=== PATIENT | female | born 1975 | race American Indian/Alaskan Native ===

== ENCOUNTER 2017-04-04 11:08 | Emergency (ER) | payer OTHER ==
--- NOTE | 2017-04-04 11:29 | EDM.PDOC ---
ED HPI GENERAL MEDICAL PROBLEM - General Chief Complaint: ENT Problem Stated Complaint: LOSING VOICE,ABD,HARD TO BREATH [id number] Time Seen by Provider: 04/04/17 11:28 Source of Information: Reports: Patient, Family, Old Records, RN, RN Notes Reviewed History Limitations: Reports: No Limitations - History of Present Illness INITIAL COMMENTS - FREE TEXT/NARRATIVE: Agitated, hyperactive pt with forced speech and behavior consistent with stimulant intoxication presents with request to "find answers" of what has been wrong with her for the past month or two. She has a long list of concerns and would also like to know if she has strep throat. C/O hoarse voice and poor appetite. Onset: Unknown/Unsure (1 or more months) Location: Reports: Generalized Severity: Moderate Improves with: Reports: None Worsens with: Reports: None Associated Symptoms: Reports: No Other Symptoms Throat Pain Score (Numeric/FACES): 9 - Related Data Allergies Allergy/AdvReac Type Severity Reaction Status Date / Time No Known Allergies Allergy Verified 04/04/17 11:16 Home Meds: Home Meds Multivitamin [Multivitamins] 1 each PO DAILY 03/11/16 [History] Amitriptyline HCl 150 mg PO DAILY 04/04/17 [History] FLUoxetine HCl [Fluoxetine HCl] 40 mg PO DAILY 04/04/17 [History] Omeprazole 20 mg PO DAILY 04/04/17 [History] QUEtiapine Fumarate [Quetiapine Fumarate] 50 mg PO BEDTIME 04/04/17 [History] rOPINIRole HCl [Ropinirole HCl] 1.25 mg PO BEDTIME 04/04/17 [History] Past Medical History Gastrointestinal History: Reports: Hepatitis, PUD Genitourinary History: Reports: Other (See Below) Other Genitourinary History: left kidney removed Psychiatric History: Reports: Addiction - Infectious Disease History Infectious Disease History: Reports: Hepatitis C - Past Surgical History Female Surgical History: Reports: Tubal Ligation Social & Family History - Family History Family Medical History: Unobtainable - Tobacco Use Smoking Status *Q: Current Every Day Smoker Years of Tobacco use: 25 Packs/Tins Daily: 0.5 Used Tobacco, but Quit: No Second Hand Smoke Exposure: Yes - Recreational Drug Use Recreational Drug Use: Yes Drug Use in Last 12 Months: Yes Recreational Drug Type: Reports: Marijuana/Hashish Recreational Drug Use Frequency: Daily - Living Situation & Occupation Living situation: Reports: with Family Occupation: Unemployed ED ROS GENERAL - Review of Systems Review Of Systems: ROS reveals no pertinent complaints other than HPI. ED EXAM, GENERAL - Physical Exam Exam: See Below Exam Limited By: No Limitations General Appearance: Alert, Other (hyperactive, anxious, appear to be "tweaking") Ears: Normal External Exam, Normal Canal, Hearing Grossly Normal, Normal TMs Nose: Normal Inspection, Normal Mucosa, No Blood Throat/Mouth: Normal Lips, Normal Oropharynx, No Airway Compromise, Other (raspy , hoarse voice). No: Normal Teeth (dental decay) Head: Atraumatic, Normocephalic, Other (large subacute bruise to Rt face) Respiratory/Chest: No Respiratory Distress, Lungs Clear, Normal Breath Sounds, No Accessory Muscle Use, Chest Non-Tender Cardiovascular: Regular Rate, Rhythm, Tachycardia GI/Abdominal: Normal Bowel Sounds, Soft, Non-Tender, No Distention. No: Guarding, Rigid, Rebound (Female) Exam: Deferred Rectal (Female) Exam: Deferred Back Exam: Normal Inspection Extremities: Normal Inspection Neurological: Alert, Oriented (to person and place), CN II-XII Intact Psychiatric: Anxious, Other (agitated) Skin Exam: Warm, Dry, Intact, Normal Color, No Rash Course - Vital Signs Last Recorded V/S: Last Vital Signs Temp 36.4 C 04/04/17 11:12 Pulse 126 H 04/04/17 11:12 Resp 18 04/04/17 11:12 BP 138/95 H 04/04/17 11:12 Pulse Ox 100 04/04/17 11:12 - Orders/Labs/Meds Orders: Active Orders 24 hr Category Date Time Status Peripheral IV Care [RC] . DIRECTED Care 04/04/17 11:48 Active Chest 2V [CR] Stat Exams 04/04/17 11:45 Taken CHLAMYDIA AND GONORRHEA BY TMA Stat Lab 04/04/17 12:20 Received CULTURE STREP A CONFIRMATION [] Stat Lab 04/04/17 11:25 Results STREP SCRN A RAPID W CULT CONF [] Stat Lab 04/04/17 11:25 Results Sodium Chloride 0.9% [Saline Flush] Med 04/04/17 11:45 Active 10 ml FLUSH ASDIRECTED PRN Peripheral IV Insertion Adult [OM.PC] Stat Oth 04/04/17 11:44 Ordered Medication Orders Sodium Chloride (Saline Flush) 10 ml FLUSH ASDIRECTED PRN PRN Reason: Keep Vein Open Last Admin: 04/04/17 12:21 Dose: 10 ml Labs: Laboratory Tests 04/04/17 04/04/17 04/04/17 Range/Units 12:05 12:05 12:10 WBC 8.6 (5.0-10.0) 10^3/uL RBC 4.10 L (4.2-5.4) 10^6/uL Hgb 13.2 D (12.0-16.0) g/dL Hct 38.9 (37.0-47.0) % MCV 94.9 (80-100) fL MCH 32.2 (27.0-34.0) pg MCHC 33.9 (33.0-35.0) g/dL Plt Count 231 D (150-450) 10^3/uL Neut % (Auto) 64.3 (42.2-75.2) % Lymph % (Auto) 21.3 (20.5-50.1) % [place] % (Auto) 13.9 H (2-8) % Eos % (Auto) 0.2 L (1.0-3.0) % Baso % (Auto) 0.3 (0.0-1.0) % Sodium 139 D (135-145) mmol/L Potassium 2.9 L (3.6-5.0) mmol/L Chloride 101 (101-111) mmol/L Carbon Dioxide 24.0 (21.0-31.0) mmol/L Anion Gap 16.9 BUN 12 (7-18) mg/dL Creatinine 0.7 (0.6-1.3) mg/dL Est Cr Clr Drug Dosing 100.77 mL/min Estimated GFR (MDRD) > 60 BUN/Creatinine Ratio 17.14 Glucose 119 H (74-105) mg/dL Calcium 9.0 (8.4-10.2) mg/dl Total Bilirubin 1.2 H (0.2-1.0) mg/dL AST 127 H (10-42) IU/L ALT 104 H (10-60) IU/L Alkaline Phosphatase 251 H (42-121) IU/L Lactate Dehydrogenase 295 H (91-180) IU/L Creatine Kinase 206 H (26-174) IU/L Total Protein 7.2 (6.7-8.2) g/dl Albumin 4.1 (3.2-5.5) g/dl Globulin 3.1 Albumin/Globulin Ratio 1.32 Amylase 132 H (28-100) U/L Lipase 67 H (22-51) U/L Urine Color Straw (YELLOW) Urine Appearance Slightly cloudy (CLEAR) Urine pH 6.0 (5.0-9.0) Ur Specific [place] 1.025 (1.005-1.030) Urine Protein 100 H (NEGATIVE) Urine Glucose (UA) Negative (NEGATIVE) Urine Ketones 15 H (NEGATIVE) Urine Occult Blood Trace-intact H (NEGATIVE) Urine Nitrite Negative (NEGATIVE) Urine Bilirubin Moderate H (NEGATIVE) Urine Urobilinogen 1.0 (0.2-1.0) mg/dL Ur Leukocyte Esterase Negative (NEGATIVE) Urine RBC 0-5 /HPF Urine WBC 0-5 (0-5/HPF) /HPF Ur Epithelial Cells Moderate H /HPF Amorphous Sediment Few (0/HPF) /HPF Urine Bacteria Moderate H (0-FEW/HPF) /HPF Urine Mucus Many H /LPF Urine Opiates Screen (NEGATIVE) Ur Oxycodone Screen (NEGATIVE) Urine Methadone Screen (NEGATIVE) Ur Barbiturates Screen (NEGATIVE) U Tricyclic Antidepress (NEGATIVE) Ur Phencyclidine Scrn (NEGATIVE) Ur Amphetamine Screen (NEGATIVE) U Methamphetamines Scrn (NEGATIVE) Urine MDMA Screen (NEGATIVE) U Benzodiazepines Scrn (NEGATIVE) Urine Cocaine Screen (NEGATIVE) U Marijuana (THC) Screen (NEGATIVE) Ethyl Alcohol < 5 mg/dL 04/04/17 Range/Units 12:10 WBC (5.0-10.0) 10^3/uL RBC (4.2-5.4) 10^6/uL Hgb (12.0-16.0) g/dL Hct (37.0-47.0) % MCV (80-100) fL MCH (27.0-34.0) pg MCHC (33.0-35.0) g/dL Plt Count (150-450) 10^3/uL Neut % (Auto) (42.2-75.2) % Lymph % (Auto) (20.5-50.1) % [place] % (Auto) (2-8) % Eos % (Auto) (1.0-3.0) % Baso % (Auto) (0.0-1.0) % Sodium (135-145) mmol/L Potassium (3.6-5.0) mmol/L Chloride (101-111) mmol/L Carbon Dioxide (21.0-31.0) mmol/L Anion Gap BUN (7-18) mg/dL Creatinine (0.6-1.3) mg/dL Est Cr Clr Drug Dosing mL/min Estimated GFR (MDRD) BUN/Creatinine Ratio Glucose (74-105) mg/dL Calcium (8.4-10.2) mg/dl Total Bilirubin (0.2-1.0) mg/dL AST (10-42) IU/L ALT (10-60) IU/L Alkaline Phosphatase (42-121) IU/L Lactate Dehydrogenase (91-180) IU/L Creatine Kinase (26-174) IU/L Total Protein (6.7-8.2) g/dl Albumin (3.2-5.5) g/dl Globulin Albumin/Globulin Ratio Amylase (28-100) U/L Lipase (22-51) U/L Urine Color (YELLOW) Urine Appearance (CLEAR) Urine pH (5.0-9.0) Ur Specific [place] (1.005-1.030) Urine Protein (NEGATIVE) Urine Glucose (UA) (NEGATIVE) Urine Ketones (NEGATIVE) Urine Occult Blood (NEGATIVE) Urine Nitrite (NEGATIVE) Urine Bilirubin (NEGATIVE) Urine Urobilinogen (0.2-1.0) mg/dL Ur Leukocyte Esterase (NEGATIVE) Urine RBC /HPF Urine WBC (0-5/HPF) /HPF Ur Epithelial Cells /HPF Amorphous Sediment (0/HPF) /HPF Urine Bacteria (0-FEW/HPF) /HPF Urine Mucus /LPF Urine Opiates Screen Negative (NEGATIVE) Ur Oxycodone Screen Negative (NEGATIVE) Urine Methadone Screen Negative (NEGATIVE) Ur Barbiturates Screen Negative (NEGATIVE) U Tricyclic Antidepress Positive H (NEGATIVE) Ur Phencyclidine Scrn Negative (NEGATIVE) Ur Amphetamine Screen Positive H (NEGATIVE) U Methamphetamines Scrn Positive H (NEGATIVE) Urine MDMA Screen Positive H (NEGATIVE) U Benzodiazepines Scrn Negative (NEGATIVE) Urine Cocaine Screen Negative (NEGATIVE) U Marijuana (THC) Screen Positive H (NEGATIVE) Ethyl Alcohol mg/dL Meds: Medications Generic Name Dose Route Start Last Admin Trade Name Priya PRN Reason Stop Dose Admin Sodium Chloride 10 ml 04/04/17 11:45 04/04/17 12:21 Saline Flush FLUSH 10 ml ASDIRECTED PRN Administration Keep Vein Open Discontinued Medications Generic Name Dose Route Start Last Admin Trade Name Priya PRN Reason Stop Dose Admin Sodium Chloride 1,000 mls @ 999 mls/hr 04/04/17 11:54 04/04/17 12:22 Normal Saline IV 04/04/17 12:54 999 mls/hr .BOLUS ONE Administration - Radiology Interpretation Free Text/Narrative:: CXR: no acute process, see Rad. report. - Re-Assessments/Exams Free Text/Narrative Re-Assessment/Exam: 04/04/17 13:50 Pt and her daughter became very angry when informed of the lab results due to the multiple positive illicit drugs she was positive for. Pt's daughter states that she didn't bring her mother here to "be judged as a bad person". I explained that there is no judgment, but that if she wishes to to well she needs to address her problem. Both the pt and her daughter escalated there behavior to a level of inappropriateness and left the department without further instructions. Departure - Departure Time of Disposition: 13:39 Disposition: Home, Self-Care 01 Condition: Fair Clinical Impression: Polysubstance abuse, Hypokalemia Substance intoxication Qualifiers: Complication of substance-induced condition: with unspecified complication Qualified Code(s): F19.929 - Other psychoactive substance use, unspecified with intoxication, unspecified Pharyngitis Qualifiers: Pharyngitis/tonsillitis etiology: unspecified etiology Qualified Code(s): J02.9 - Acute pharyngitis, unspecified - Discharge Information Instructions: Pharyngitis, Hypokalemia, Finding Treatment for Addiction, Potassium Content of Foods, Stimulant Use Disorder-Methamphetamines Forms: ED Department Discharge Additional Instructions: Follow up in clinic for recheck this week. Seek substance abuse treatment. - My Orders Last 24 Hours: My Active Orders 04/04/17 11:25 CULTURE STREP A CONFIRMATION [RM] Stat STREP SCRN A RAPID W CULT CONF [RM] Stat 04/04/17 11:44 Peripheral IV Insertion Adult [OM.PC] Stat 04/04/17 11:45 Chest 2V [CR] Stat Sodium Chloride 0.9% [Saline Flush] 10 ml FLUSH ASDIRECTED PRN 04/04/17 11:48 Peripheral IV Care [RC] . DIRECTED 04/04/17 12:20 CHLAMYDIA AND GONORRHEA BY TMA Stat - Assessment/Plan Last 24 Hours: My Active Orders 04/04/17 11:25 CULTURE STREP A CONFIRMATION [RM] Stat STREP SCRN A RAPID W CULT CONF [RM] Stat 04/04/17 11:44 Peripheral IV Insertion Adult [OM.PC] Stat 04/04/17 11:45 Chest 2V [CR] Stat Sodium Chloride 0.9% [Saline Flush] 10 ml FLUSH ASDIRECTED PRN 04/04/17 11:48 Peripheral IV Care [RC] . DIRECTED 04/04/17 12:20 CHLAMYDIA AND GONORRHEA BY TMA Stat
[2017-04-04] MEDS ORDERED: Sodium Chloride 0.9% 10 ML Syringe FLUSH PRN (11:45)
[2017-04-04] MEDS ORDERED: Sodium Chloride 0.9% 1,000 ML IV ONE (11:54)
[2017-04-04 12:53] LABS: CHLORIDE,CL 101 mmol/L (101-111); SODIUM,NA 139 mmol/L (135-145)
--- NOTE | 2017-04-04 13:57 | CR ---
Clinical history: 41-year-old female cough. Interpretation: Subtle peribronchial "cuffing" but no associated air trapping or lobar pneumonia. No atelectasis/collapse. Chronic hypertrophic arthritic changes dorsal spine. Normal cardiac silhouette without cephalization of vascular flow, signs of alveolar edema or dependen t pleural effusion. No lung mass or hilar lymphadenopathy. No atelectasis/collapse. No pneumothorax. CONCLUSION: Bronchial inflammatory change. No signs of heart failure or lobar pneumonia.
== END 2017-04-04 13:40 | disposition home or self-care (01) ==
LOC: DL.ED 11:08
DX: F19.129 Other psychoactive substance abuse with intoxication, unspecified (principal); E87.6 Hypokalemia; J02.9 Acute pharyngitis, unspecified; F17.210 Nicotine dependence, cigarettes, uncomplicated; Z79.899 Other long term (current) drug therapy
CPT/HCPCS: 36415; 71046; 80053; 80305; 81001; 82150; 82550; 83615; 83690; 85025; 87081; 87430; 87491; 87591; 96360; 99283; G0480; J7030; J7050

== ENCOUNTER 2017-05-20 16:50 | Emergency (ER) | payer OTHER ==
[2017-05-20] MEDS ORDERED: Sodium Chloride 0.9% 10 ML Syringe FLUSH PRN (16:51)
[2017-05-20] MEDS ORDERED: Sodium Chloride 0.9% 1,000 ML IV ONE (16:53)
[2017-05-20] MEDS ORDERED: Naloxone 2 MG/2 ML Syringe IVPUSH ONE ×2 (17:03→17:16)
--- NOTE | 2017-05-20 17:03 | EDM.PDOCBH ---
<Katlyn Ritter - Last Filed: 05/20/17 18:39> ED HPI GENERAL MEDICAL PROBLEM - General Chief Complaint: Behavioral/Psych Stated Complaint: POSSIBLE OVERDOSE Time Seen by Provider: 05/20/17 16:55 Source of Information: Reports: Patient, EMS, EMS Notes Reviewed, RN, RN Notes Reviewed History Limitations: Reports: No Limitations - History of Present Illness INITIAL COMMENTS - FREE TEXT/NARRATIVE: Pt presents to ER per [facility]. She states she has been drinking quite a bit of alcohol (she states 2 pints of vodka) and taking 4 Seroquel and 2 Amitryptiline. She states she did not intend to harm herself but that "it was a cry for attention" from her children. She states she wants her children to come and visit her and they don't. Patient states she took the pills at approximately 1430 today. Patient states she was suicidal many years ago, but not now. Patient denies any recent illnesses. Onset: Today, Sudden Onset Time: 14:30 - Related Data Allergies Allergy/AdvReac Type Severity Reaction Status Date / Time No Known Allergies Allergy Verified 04/04/17 11:16 Home Meds: Home Meds Multivitamin [Multivitamins] 1 each PO DAILY 03/11/16 [History] Omeprazole 20 mg PO DAILY 04/04/17 [History] QUEtiapine Fumarate [Quetiapine Fumarate] 1 tab PO BEDTIME 04/04/17 [History] Acetaminophen [Non-Aspirin] 2 tab PO ASDIRECTED PRN 05/20/17 [History] Amitriptyline [Elavil] 2 tab PO BEDTIME 05/20/17 [History] DULoxetine HCl [Cymbalta] 1 cap PO DAILY 05/20/17 [History] rOPINIRole [Requip] 1.25 mg PO BEDTIME 05/20/17 [History] Past Medical History Gastrointestinal History: Reports: Hepatitis, PUD Genitourinary History: Reports: Other (See Below) Other Genitourinary History: left kidney removed Psychiatric History: Reports: Addiction - Infectious Disease History Infectious Disease History: Reports: Hepatitis C - Past Surgical History Female Surgical History: Reports: Tubal Ligation Social & Family History - Family History Family Medical History: Unobtainable - Tobacco Use Smoking Status *Q: Current Every Day Smoker Years of Tobacco use: 25 Packs/Tins Daily: 0.5 Used Tobacco, but Quit: No Second Hand Smoke Exposure: Yes - Recreational Drug Use Recreational Drug Use: Yes Drug Use in Last 12 Months: Yes Recreational Drug Type: Reports: Marijuana/Hashish Recreational Drug Use Frequency: Daily - Living Situation & Occupation Living situation: Reports: with Family Occupation: Unemployed ED ROS GENERAL - Review of Systems Review Of Systems: ROS reveals no pertinent complaints other than HPI. ED EXAM, BEHAVIORAL HEALTH - Physical Exam Exam: See Below Exam Limited By: Intoxication General Appearance: Alert, WD/WN, No Apparent Distress Eye Exam: Bilateral Eye: EOMI, PERRL (2 sluggish) Ears: Normal External Exam, Hearing Grossly Normal Nose: Normal Inspection Throat/Mouth: Normal Inspection, Normal Voice, No Airway Compromise, Other (dry mouth) Head: Atraumatic, Normocephalic Neck: Normal Inspection, Supple, Non-Tender, Full Range of Motion Respiratory/Chest: No Respiratory Distress, Lungs Clear, Normal Breath Sounds, No Accessory Muscle Use, Chest Non-Tender Cardiovascular: Normal Peripheral Pulses, Regular Rate, Rhythm, No Edema, No Gallop, No JVD, No Murmur, No Rub GI/Abdominal: Normal Bowel Sounds, Soft, Non-Tender, No Organomegaly, No Distention, No Abnormal Bruit, No Mass (Female) Exam: Deferred Rectal (Female) Exam: Deferred Back Exam: Normal Inspection, Full Range of Motion, NT Extremities: Normal Inspection, Normal Range of Motion, Non-Tender, Normal Capillary Refill, No Pedal Edema Neurological: Alert, Normal Mood/Affect, CN II-XII Intact, Normal Cognition, Normal Gait, Normal Reflexes, No Motor/Sensory Deficits, Oriented x 3 Psychiatric: Alert, Normal Affect, Oriented Skin Exam: Warm, Dry, Intact, Normal color, No rash EKG INTERPRETATION EKG Date: 05/20/17 Time: 17:07 Rhythm: NSR Rate (Beats/Min): 97 [place]: Normal P-Wave: Present QRS: Normal ST-T: Normal QT: Normal Comparison: NA - No Prior EKG COURSE, BEHAVIORAL HEALTH COMP - Course Vital Signs: Last Vital Signs Temp 36.9 C 05/20/17 16:48 Pulse 113 H 05/20/17 16:48 Resp 18 05/20/17 16:48 BP 98/62 05/20/17 16:48 Pulse Ox 90 L 05/20/17 16:48 Orders, Labs, Meds: Active Orders 24 hr Category Date Time Status EKG Documentation Completion [RC] STAT Care 05/20/17 16:52 Active Peripheral IV Care [RC] . DIRECTED Care 05/20/17 16:52 Active DRUG SCREEN URINE BIORAD [URCHEM] Stat Lab 05/20/17 17:22 Ordered HCG QUALITATIVE,URINE [URCHEM] Stat Lab 05/20/17 17:22 Ordered UA W/MICROSCOPIC [URIN] Stat Lab 05/20/17 17:22 Ordered Sodium Chloride 0.9% [Saline Flush] Med 05/20/17 16:51 Active 10 ml FLUSH ASDIRECTED PRN Peripheral IV Insertion Adult [OM.PC] Stat Oth 05/20/17 16:51 Ordered Medication Orders Sodium Chloride (Saline Flush) 10 ml FLUSH ASDIRECTED PRN PRN Reason: Keep Vein Open Last Admin: 05/20/17 17:10 Dose: 10 ml Laboratory Tests 05/20/17 05/20/17 05/20/17 Range/Units 17:01 17:01 17:22 WBC 7.4 (5.0-10.0) 10^3/uL RBC 4.41 (4.2-5.4) 10^6/uL Hgb 14.7 D (12.0-16.0) g/dL Hct 42.5 (37.0-47.0) % MCV 96.4 (80-100) fL MCH 33.3 (27.0-34.0) pg MCHC 34.6 (33.0-35.0) g/dL Plt Count 308 D (150-450) 10^3/uL Neut % (Auto) 34.9 L (42.2-75.2) % Lymph % (Auto) 57.0 H (20.5-50.1) % [place] % (Auto) 6.9 (2-8) % Eos % (Auto) 0.4 L (1.0-3.0) % Baso % (Auto) 0.8 (0.0-1.0) % Sodium 140 (135-145) mmol/L Potassium 3.6 (3.6-5.0) mmol/L Chloride 107 (101-111) mmol/L Carbon Dioxide 22.0 (21.0-31.0) mmol/L Anion Gap 14.6 BUN 13 (7-18) mg/dL Creatinine 0.8 (0.6-1.3) mg/dL Est Cr Clr Drug Dosing TNP Estimated GFR (MDRD) > 60 BUN/Creatinine Ratio 16.25 Glucose 107 H (74-105) mg/dL Calcium 8.0 L (8.4-10.2) mg/dl Total Bilirubin 0.5 (0.2-1.0) mg/dL AST 80 H (10-42) IU/L ALT 71 H (10-60) IU/L Alkaline Phosphatase 152 H (42-121) IU/L Total Protein 6.9 (6.7-8.2) g/dl Albumin 3.6 (3.2-5.5) g/dl Globulin 3.3 Albumin/Globulin Ratio 1.09 Urine Color Yellow (YELLOW) Urine Appearance Slightly cloudy (CLEAR) Urine pH 7.0 (5.0-9.0) Ur Specific [place] 1.020 (1.005-1.030) Urine Protein 100 H (NEGATIVE) Urine Glucose (UA) Negative (NEGATIVE) Urine Ketones Negative (NEGATIVE) Urine Occult Blood Trace-lysed H (NEGATIVE) Urine Nitrite Negative (NEGATIVE) Urine Bilirubin Negative (NEGATIVE) Urine Urobilinogen 0.2 (0.2-1.0) mg/dL Ur Leukocyte Esterase Negative (NEGATIVE) Urine RBC 0-5 /HPF Urine WBC 5-10 H (0-5/HPF) /HPF Ur Epithelial Cells Few /HPF Amorphous Sediment Rare (0/HPF) /HPF Urine Bacteria Moderate H (0-FEW/HPF) /HPF Urine Mucus Rare /LPF Urine HCG, Qual Salicylates < 4 Urine Opiates Screen (NEGATIVE) Ur Oxycodone Screen (NEGATIVE) Urine Methadone Screen (NEGATIVE) Acetaminophen < 10 Ur Barbiturates Screen (NEGATIVE) U Tricyclic Antidepress (NEGATIVE) Ur Phencyclidine Scrn (NEGATIVE) Ur Amphetamine Screen (NEGATIVE) U Methamphetamines Scrn (NEGATIVE) Urine MDMA Screen (NEGATIVE) U Benzodiazepines Scrn (NEGATIVE) Urine Cocaine Screen (NEGATIVE) U Marijuana (THC) Screen (NEGATIVE) Ethyl Alcohol 320 mg/dL 05/20/17 05/20/17 05/20/17 Range/Units 17:22 17:22 20:12 WBC (5.0-10.0) 10^3/uL RBC (4.2-5.4) 10^6/uL Hgb (12.0-16.0) g/dL Hct (37.0-47.0) % MCV (80-100) fL MCH (27.0-34.0) pg MCHC (33.0-35.0) g/dL Plt Count (150-450) 10^3/uL Neut % (Auto) (42.2-75.2) % Lymph % (Auto) (20.5-50.1) % [place] % (Auto) (2-8) % Eos % (Auto) (1.0-3.0) % Baso % (Auto) (0.0-1.0) % Sodium (135-145) mmol/L Potassium (3.6-5.0) mmol/L Chloride (101-111) mmol/L Carbon Dioxide (21.0-31.0) mmol/L Anion Gap BUN (7-18) mg/dL Creatinine (0.6-1.3) mg/dL Est Cr Clr Drug Dosing Estimated GFR (MDRD) BUN/Creatinine Ratio Glucose (74-105) mg/dL Calcium (8.4-10.2) mg/dl Total Bilirubin (0.2-1.0) mg/dL AST (10-42) IU/L ALT (10-60) IU/L Alkaline Phosphatase (42-121) IU/L Total Protein (6.7-8.2) g/dl Albumin (3.2-5.5) g/dl Globulin Albumin/Globulin Ratio Urine Color (YELLOW) Urine Appearance (CLEAR) Urine pH (5.0-9.0) Ur Specific [place] (1.005-1.030) Urine Protein (NEGATIVE) Urine Glucose (UA) (NEGATIVE) Urine Ketones (NEGATIVE) Urine Occult Blood (NEGATIVE) Urine Nitrite (NEGATIVE) Urine Bilirubin (NEGATIVE) Urine Urobilinogen (0.2-1.0) mg/dL Ur Leukocyte Esterase (NEGATIVE) Urine RBC /HPF Urine WBC (0-5/HPF) /HPF Ur Epithelial Cells /HPF Amorphous Sediment (0/HPF) /HPF Urine Bacteria (0-FEW/HPF) /HPF Urine Mucus /LPF Urine HCG, Qual Negative Salicylates Urine Opiates Screen Negative (NEGATIVE) Ur Oxycodone Screen Negative (NEGATIVE) Urine Methadone Screen Negative (NEGATIVE) Acetaminophen Ur Barbiturates Screen Negative (NEGATIVE) U Tricyclic Antidepress Positive H (NEGATIVE) Ur Phencyclidine Scrn Negative (NEGATIVE) Ur Amphetamine Screen Negative (NEGATIVE) U Methamphetamines Scrn Negative (NEGATIVE) Urine MDMA Screen Negative (NEGATIVE) U Benzodiazepines Scrn Negative (NEGATIVE) Urine Cocaine Screen Negative (NEGATIVE) U Marijuana (THC) Screen Positive H (NEGATIVE) Ethyl Alcohol 247 mg/dL Medications Generic Name Dose Route Start Last Admin Trade Name Freq PRN Reason Stop Dose Admin Sodium Chloride 10 ml 05/20/17 16:51 05/20/17 17:10 Saline Flush FLUSH 10 ml ASDIRECTED PRN Administration Keep Vein Open Discontinued Medications Generic Name Dose Route Start Last Admin Trade Name Freq PRN Reason Stop Dose Admin Sodium Chloride 1,000 mls @ 999 mls/hr 05/20/17 16:53 05/20/17 17:28 Normal Saline IV 05/20/17 17:53 999 mls/hr .BOLUS ONE Administration Multivitamins/Minerals 10 ml/ 1,011.2 mls @ 999 mls/hr 05/20/17 18:24 18:40 Folic Acid 1 mg/ Thiamine HCl IV 05/20/17 19:24 999 mls/hr 100 mg/ Lactated Ringer's ONETIME ONE Administration Naloxone HCl 0.1 mg 05/20/17 17:03 05/20/17 17:14 Narcan IVPUSH 05/20/17 17:04 2 mg ONETIME ONE Administration Naloxone HCl 2 mg 05/20/17 17:16 05/20/17 17:29 Narcan IVPUSH 05/20/17 17:17 Not Given ONETIME ONE Re-Assessment/Re-Exam: Patient states that she is not suicidal. Patient states she was "crying out for attention". She states she wanted her children to come and see her. Patient insists that she does not want to harm herself. Departure - Departure Disposition: Home, Self-Care 01 Clinical Impression: Reaction, situational, acute, to stress - Discharge Information Forms: ED Department Discharge Additional Instructions: 1) follow up with Human Services for counseling during stressful situations 2) recheck if there is any change or concern <Antwon Huang - Last Filed: 05/20/17 20:55> COURSE, BEHAVIORAL HEALTH COMP - Course Re-Assessment/Re-Exam: re-exam; etoh lower, pt states wants to go home, not suicidal but just upset over family matters. but feels fine now. just wants to go home to rest. Departure - Departure Time of Disposition: 20:52 Condition: Good
[2017-05-20 17:27] LABS: CHLORIDE,CL 107 mmol/L (101-111); SODIUM,NA 140 mmol/L (135-145)
[2017-05-20 17:30] LABS: ACETAMINOPHEN < 10
[2017-05-20] MEDS ORDERED: MVI, Adult with Vitamin K 10 ML, Folic Acid 1 MG, Thiamine 100 MG in Lactated Ringers 1... IV ONE ×4 (18:24)
--- NOTE | 2017-05-23 12:08 | EKG ---
05/20/2017 - KATH JOVEL J - FINDINGS: A 12-lead EKG shows normal sinus rhythm with heart rate of 97. No significant ST elevation or ST depression noted on this 12-lead EKG. Nonspecific ST-T wave changes noted on lead V2, V3. [facility] /[id number]
== END 2017-05-20 21:10 | disposition home or self-care (01) ==
LOC: DL.ED 16:50
DX: F43.0 Acute stress reaction (principal); F43.20 Adjustment disorder, unspecified; F17.210 Nicotine dependence, cigarettes, uncomplicated; Z79.899 Other long term (current) drug therapy
CPT/HCPCS: 36415; 80053; 80305; 81001; 81025; 85025; 93005; 96361; 96365; 96375; 99284; G0480; J2310; J3411; J7030; J7050; J7120; 93010; J3490